=== PATIENT | male | born 1950 | race African-American/Black ===

== ENCOUNTER 2021-06-25 08:25 | Inpatient (IN) | payer MEDICARE ==
[2021-06-24 12:06] LABS: BASOPHILS % 0.2 % (0.0-1.0); EOSINOPHILS # (AUTO) 0.1 (0.0-0.4); EOSINOPHILS % 2.2 % (0.0-6.0); HEMATOCRIT 38.9 % (38.2-49.6); HEMOGLOBIN 12.5 g/dL (14.0-18.0); LYMPHOCYTES # (AUTO) 0.8 (1.0-3.2); LYMPHOCYTES % 12.6 % (18.0-39.1); MEAN CORPUSCULAR HEMOGLOBIN 30.8 pg (28-32); MEAN CORPUSCULAR HGB CONC 32.1 g/dL (31-35); MEAN CORPUSCULAR VOLUME 95.8 fL (81-99); MONOCYTES # (AUTO) 0.4 (0.2-0.8); MONOCYTES % 6.5 % (4.4-11.3); NEUTROPHILS % 78.2 % (38.7-80.0); PLATELET COUNT 140 x10e3/uL (140-360); RED BLOOD COUNT 4.06 x10e6/uL (4.3-5.7); RED CELL DISTRIBUTION WIDTH 12.7 % (11.7-14.4)
[2021-06-24 12:22] LABS: ANION GAP 16.3 mmol/L (8-16); CALCIUM 9.8 mg/dL (8.4-10.2); CREATININE, SERUM 1.75 mg/dL (0.72-1.25); POTASSIUM 5.3 mmol/L (3.5-5.1)
[~2021-06-25] VITALS: Ht 182.9 cm; Wt 71.2 kg
[~2021-06-25 08:25] MED LIST: GENTAMICIN 80MG/NS 100 ML 200 ML IV ONE; LEVOTHYROXINE50 MCG PO; LISINOPRIL-HCT1 EACH PO; METFORMIN HCL500 MG PO; PIPERACILLIN/TAZOBACTAM 3.375 GM VIAL ONE; PRAVASTATIN SOD40 MG PO; SODIUM CHLORIDE 0.9% 1000ML 1,000 ML ONE; SODIUM CHLORIDE 0.9% 50ML 50 ML ONE
[2021-06-25] MEDS ORDERED: IOPAMIDOL 300MG/ML 50ML INFUS..BTL IV ONE (11:45)
[2021-06-25] MEDS ORDERED: B&O 60MG R/S 60 MG SUPP PR ONE (11:45)
[2021-06-25] MEDS ORDERED: SEVOFLURANE INHAL SOLN 250 ML PEN BTL ONE (12:43)
[2021-06-25] MEDS ORDERED: POVIDONE IODINE 0.05% 0.05 % ML PO ONE (12:43)
[2021-06-25] MEDS ORDERED: LIDOCAINE HCL 2% LOCAL INJ 5 ML SDV VIAL INJ ONE (12:43)
[2021-06-25] MEDS ORDERED: ONDANSETRON HCL INJ 2MG/ML 2ML 2 MG/ML VIAL ONE (12:43)
[2021-06-25] MEDS ORDERED: DEXAMETHASONE SOD PHOS INJ 4 MG/ML SDV ONE (12:43)
[2021-06-25] MEDS ORDERED: PROPOFOL IV EMULSION 10 MG/ML 20 ML VIAL ONE (12:43)
[2021-06-25] MEDS ORDERED: FENTANYL CITRATE/PF 100MCG/2 ML INJ ONE ×2 (13:05→14:23)
[2021-06-25] MEDS ORDERED: MIDAZOLAM HCL 2 MG/2 ML VIAL ONE (13:05)
[2021-06-25] MEDS ORDERED: DIPHENHYDRAMINE HCL 25 MG CAP PO PRN (15:15)
[2021-06-25] MEDS ORDERED: D5.45%NS/KCL 20MEQ 1,000 ML IV SCH (15:15)
[2021-06-25] MEDS ORDERED: ONDANSETRON HCL INJ 2MG/ML 2ML 2 MG/ML VIAL IV PRN (15:15)
[2021-06-25 15:45] VITALS: BP 139/74
[2021-06-25 16:29] LABS: EOSINOPHILS % 0.3 % (0.0-6.0); HEMATOCRIT 40.9 % (38.2-49.6); HEMOGLOBIN 13.3 g/dL (14.0-18.0); LYMPHOCYTES # (AUTO) 0.5 (1.0-3.2); LYMPHOCYTES % 8.2 % (18.0-39.1); MEAN CORPUSCULAR HEMOGLOBIN 30.6 pg (28-32); MEAN CORPUSCULAR HGB CONC 32.5 g/dL (31-35); MONOCYTES # (AUTO) 0.1 (0.2-0.8); NEUTROPHILS # (AUTO) 5.3 (2.1-6.9); NEUTROPHILS % 90.3 % (38.7-80.0); PLATELET COUNT 126 x10e3/uL (140-360); RED BLOOD COUNT 4.35 x10e6/uL (4.3-5.7); RED CELL DISTRIBUTION WIDTH 12.8 % (11.7-14.4)
[2021-06-25 16:46] LABS: ANION GAP 11.7 mmol/L (8-16); CALCIUM 8.2 mg/dL (8.4-10.2); CREATININE, SERUM 1.55 mg/dL (0.72-1.25); POTASSIUM 4.7 mmol/L (3.5-5.1)
[2021-06-25 17:00] VITALS: BP 139/74
[2021-06-25 18:29] VITALS: BP 139/74
[2021-06-25] MEDS: DOCUSATE SODIUM 100 MG CAP PO SCH (18:51)
[2021-06-25 20:00] VITALS: BP 121/55
[2021-06-25] MEDS: PIPERACILLIN/TAZOBACTAM 2.25 GM in SODIUM CHLORIDE 0.9% 50ML 50 ML IV SCH (21:21)
[2021-06-26] VITALS (8 sets, daily range): BP systolic 112–146; BP diastolic 54–78
[2021-06-26] MEDS ORDERED: D5.45%NS/KCL 20MEQ 1,000 ML IV SCH (03:00)
[2021-06-26] MEDS: PIPERACILLIN/TAZOBACTAM 2.25 GM in SODIUM CHLORIDE 0.9% 50ML 50 ML IV SCH ×3 (06:09→22:05)
[2021-06-26 06:38] LABS: BASOPHILS % 0.1 % (0.0-1.0); EOSINOPHILS % 0.1 % (0.0-6.0); HEMATOCRIT 35.8 % (38.2-49.6); HEMOGLOBIN 11.9 g/dL (14.0-18.0); LYMPHOCYTES # (AUTO) 0.6 (1.0-3.2); LYMPHOCYTES % 6.9 % (18.0-39.1); MEAN CORPUSCULAR HEMOGLOBIN 30.5 pg (28-32); MEAN CORPUSCULAR HGB CONC 33.2 g/dL (31-35); MEAN CORPUSCULAR VOLUME 91.8 fL (81-99); MONOCYTES # (AUTO) 0.5 (0.2-0.8); MONOCYTES % 5.5 % (4.4-11.3); NEUTROPHILS # (AUTO) 7.8 (2.1-6.9); NEUTROPHILS % 87.1 % (38.7-80.0); PLATELET COUNT 134 x10e3/uL (140-360); RED CELL DISTRIBUTION WIDTH 12.6 % (11.7-14.4)
[2021-06-26 06:55] LABS: ANION GAP 9.8 mmol/L (8-16); CREATININE, SERUM 1.66 mg/dL (0.72-1.25); POTASSIUM 4.8 mmol/L (3.5-5.1)
[2021-06-26] MEDS ORDERED: ACETAMINOPHEN 325 MG TAB PO PRN (09:00)
[2021-06-26] MEDS ORDERED: DEXTROSE 50% SYRINGE 50 ML IV PRN (09:00)
[2021-06-26] MEDS: DOCUSATE SODIUM 100 MG CAP PO SCH ×2 (09:38→15:46)
[2021-06-26] MEDS: LEVOTHYROXINE SODIUM 50 MCG TAB PO SCH (10:00)
[2021-06-26] MEDS: SODIUM BICARBONATE 8.4% 50 ML in SODIUM CHLORIDE 0.45% 1,000 ML IV SCH ×2 (11:03→20:10)
[2021-06-26] MEDS: INSULIN LISPRO 100 UNIT/1 ML 3ML VIAL SQ SCH ×3 (11:30→20:10)
[2021-06-26] MEDS: PHENAZOPYRIDINE HCL 100 MG TAB PO PRN (15:45)
[2021-06-26] MEDS: ACETAMINOPHEN/CODEINE 300MG - 30MG TAB PO PRN (15:46)
[2021-06-26] MEDS: PRAVASTATIN 20 MG TAB PO SCH (20:10)
[2021-06-27] VITALS (8 sets, daily range): BP systolic 115–155; BP diastolic 60–96
[2021-06-27] MEDS: PHENAZOPYRIDINE HCL 100 MG TAB PO PRN ×4 (03:28→21:55)
[2021-06-27] MEDS: ACETAMINOPHEN/CODEINE 300MG - 30MG TAB PO PRN ×4 (03:28→21:55)
[2021-06-27 05:54] LABS: BASOPHILS % 0.3 % (0.0-1.0); EOSINOPHILS # (AUTO) 0.2 (0.0-0.4); EOSINOPHILS % 3.1 % (0.0-6.0); HEMATOCRIT 34.5 % (38.2-49.6); HEMOGLOBIN 11.3 g/dL (14.0-18.0); LYMPHOCYTES # (AUTO) 0.9 (1.0-3.2); MEAN CORPUSCULAR HEMOGLOBIN 30.8 pg (28-32); MEAN CORPUSCULAR HGB CONC 32.8 g/dL (31-35); MONOCYTES # (AUTO) 0.5 (0.2-0.8); MONOCYTES % 7.6 % (4.4-11.3); NEUTROPHILS # (AUTO) 5.1 (2.1-6.9); NEUTROPHILS % 75.6 % (38.7-80.0); PLATELET COUNT 115 x10e3/uL (140-360); RED BLOOD COUNT 3.67 x10e6/uL (4.3-5.7); RED CELL DISTRIBUTION WIDTH 12.9 % (11.7-14.4)
[2021-06-27 06:18] LABS: ANION GAP 8.5 mmol/L (8-16); CALCIUM 7.9 mg/dL (8.4-10.2); CREATININE, SERUM 1.61 mg/dL (0.72-1.25); POTASSIUM 4.5 mmol/L (3.5-5.1)
[2021-06-27] MEDS: LEVOTHYROXINE SODIUM 50 MCG TAB PO SCH (06:39)
[2021-06-27] MEDS: PIPERACILLIN/TAZOBACTAM 2.25 GM in SODIUM CHLORIDE 0.9% 50ML 50 ML IV SCH (06:39)
[2021-06-27] MEDS: INSULIN LISPRO 100 UNIT/1 ML 3ML VIAL SQ SCH ×5 (07:30→22:13)
[2021-06-27] MEDS: CEFUROXIME AXETIL 250 MG TAB PO SCH ×2 (08:59→21:54)
[2021-06-27] MEDS: DOCUSATE SODIUM 100 MG CAP PO SCH ×2 (08:59→16:56)
[2021-06-27] MEDS: SODIUM CHLORIDE 0.9% 1000ML 1,000 ML IV SCH (18:59)
[2021-06-27] MEDS: PRAVASTATIN 20 MG TAB PO SCH (21:54)
[2021-06-28 04:00] VITALS: BP 150/75
[2021-06-28] MEDS: SODIUM CHLORIDE 0.9% 1000ML 1,000 ML IV SCH ×2 (04:12→14:36)
[2021-06-28] MEDS: LEVOTHYROXINE SODIUM 50 MCG TAB PO SCH (05:28)
[2021-06-28 06:14] LABS: BASOPHILS % 0.3 % (0.0-1.0); EOSINOPHILS # (AUTO) 0.3 (0.0-0.4); EOSINOPHILS % 3.7 % (0.0-6.0); HEMATOCRIT 38.1 % (38.2-49.6); HEMOGLOBIN 12.3 g/dL (14.0-18.0); LYMPHOCYTES # (AUTO) 0.8 (1.0-3.2); LYMPHOCYTES % 12.5 % (18.0-39.1); MEAN CORPUSCULAR HEMOGLOBIN 30.4 pg (28-32); MEAN CORPUSCULAR HGB CONC 32.3 g/dL (31-35); MEAN CORPUSCULAR VOLUME 94.1 fL (81-99); MONOCYTES # (AUTO) 0.5 (0.2-0.8); MONOCYTES % 7.6 % (4.4-11.3); NEUTROPHILS # (AUTO) 5.1 (2.1-6.9); NEUTROPHILS % 75.5 % (38.7-80.0); PLATELET COUNT 106 x10e3/uL (140-360); RED BLOOD COUNT 4.05 x10e6/uL (4.3-5.7); RED CELL DISTRIBUTION WIDTH 12.7 % (11.7-14.4)
[2021-06-28 06:38] LABS: ANION GAP 9.9 mmol/L (8-16); CALCIUM 8.3 mg/dL (8.4-10.2); CREATININE, SERUM 1.33 mg/dL (0.72-1.25); POTASSIUM 4.9 mmol/L (3.5-5.1)
[2021-06-28] MEDS: INSULIN LISPRO 100 UNIT/1 ML 3ML VIAL SQ SCH ×4 (07:30→21:00)
[2021-06-28 08:13] VITALS: BP 135/67
[2021-06-28] MEDS: DOCUSATE SODIUM 100 MG CAP PO SCH ×2 (09:21→17:10)
[2021-06-28] MEDS: PHENAZOPYRIDINE HCL 100 MG TAB PO PRN ×2 (09:21→17:17)
[2021-06-28] MEDS: ACETAMINOPHEN/CODEINE 300MG - 30MG TAB PO PRN ×2 (09:21→17:16)
[2021-06-28] MEDS: CEFUROXIME AXETIL 250 MG TAB PO SCH ×2 (09:21→21:55)
[2021-06-28 09:26] VITALS: BP 135/67
[2021-06-28 11:55] VITALS: BP 160/61
[2021-06-28 15:42] VITALS: BP 152/85
[2021-06-28 20:00] VITALS: BP 154/69
[2021-06-28] MEDS: PRAVASTATIN 20 MG TAB PO SCH (21:55)
[2021-06-29] VITALS (7 sets, daily range): BP systolic 129–167; BP diastolic 66–71
[2021-06-29] MEDS: SODIUM CHLORIDE 0.9% 1000ML 1,000 ML IV SCH ×3 (00:30→21:46)
[2021-06-29 05:55] LABS: BASOPHILS % 0.2 % (0.0-1.0); EOSINOPHILS # (AUTO) 0.3 (0.0-0.4); EOSINOPHILS % 4.6 % (0.0-6.0); HEMATOCRIT 33.2 % (38.2-49.6); HEMOGLOBIN 11.1 g/dL (14.0-18.0); LYMPHOCYTES # (AUTO) 0.5 (1.0-3.2); LYMPHOCYTES % 8.9 % (18.0-39.1); MEAN CORPUSCULAR HEMOGLOBIN 30.7 pg (28-32); MEAN CORPUSCULAR HGB CONC 33.4 g/dL (31-35); MONOCYTES # (AUTO) 0.4 (0.2-0.8); NEUTROPHILS # (AUTO) 4.6 (2.1-6.9); NEUTROPHILS % 79.1 % (38.7-80.0); PLATELET COUNT 102 x10e3/uL (140-360); RED BLOOD COUNT 3.61 x10e6/uL (4.3-5.7); RED CELL DISTRIBUTION WIDTH 12.5 % (11.7-14.4)
[2021-06-29] MEDS: LEVOTHYROXINE SODIUM 50 MCG TAB PO SCH (05:56)
[2021-06-29 06:20] LABS: ANION GAP 9.4 mmol/L (8-16); CREATININE, SERUM 1.19 mg/dL (0.72-1.25); POTASSIUM 4.4 mmol/L (3.5-5.1)
[2021-06-29] MEDS: INSULIN LISPRO 100 UNIT/1 ML 3ML VIAL SQ SCH ×4 (07:30→22:12)
[2021-06-29] MEDS: DOCUSATE SODIUM 100 MG CAP PO SCH ×2 (08:30→16:50)
[2021-06-29] MEDS: CEFUROXIME AXETIL 250 MG TAB PO SCH ×2 (08:30→21:00)
[2021-06-29] MEDS: PHENAZOPYRIDINE HCL 100 MG TAB PO PRN (11:00)
[2021-06-29] MEDS: ACETAMINOPHEN/CODEINE 300MG - 30MG TAB PO PRN (11:00)
[2021-06-29] MEDS: B&O 60MG R/S 60 MG SUPP PR PRN ×2 (15:03→21:47)
[2021-06-29] MEDS: PRAVASTATIN 20 MG TAB PO SCH (21:00)
[2021-06-30] VITALS (9 sets, daily range): BP systolic 136–198; BP diastolic 61–77
[2021-06-30] MEDS: PHENAZOPYRIDINE HCL 100 MG TAB PO PRN ×2 (00:39→20:41)
[2021-06-30] MEDS: LEVOTHYROXINE SODIUM 50 MCG TAB PO SCH (05:05)
[2021-06-30 05:07] LABS: BASOPHILS % 0.2 % (0.0-1.0); EOSINOPHILS # (AUTO) 0.3 (0.0-0.4); HEMATOCRIT 31.4 % (38.2-49.6); HEMOGLOBIN 10.4 g/dL (14.0-18.0); LYMPHOCYTES # (AUTO) 0.5 (1.0-3.2); LYMPHOCYTES % 10.4 % (18.0-39.1); MEAN CORPUSCULAR HEMOGLOBIN 30.3 pg (28-32); MEAN CORPUSCULAR HGB CONC 33.1 g/dL (31-35); MEAN CORPUSCULAR VOLUME 91.5 fL (81-99); MONOCYTES # (AUTO) 0.4 (0.2-0.8); MONOCYTES % 7.5 % (4.4-11.3); NEUTROPHILS # (AUTO) 3.9 (2.1-6.9); NEUTROPHILS % 75.7 % (38.7-80.0); PLATELET COUNT 96 x10e3/uL (140-360); RED BLOOD COUNT 3.43 x10e6/uL (4.3-5.7); RED CELL DISTRIBUTION WIDTH 12.6 % (11.7-14.4)
[2021-06-30] MEDS: SODIUM CHLORIDE 0.9% 1000ML 1,000 ML IV SCH ×2 (05:30→13:50)
[2021-06-30 05:32] LABS: ANION GAP 10.9 mmol/L (8-16); CREATININE, SERUM 1.25 mg/dL (0.72-1.25); POTASSIUM 3.9 mmol/L (3.5-5.1)
[2021-06-30] MEDS: INSULIN LISPRO 100 UNIT/1 ML 3ML VIAL SQ SCH ×4 (07:30→20:39)
[2021-06-30] MEDS: CEFUROXIME AXETIL 250 MG TAB PO SCH ×2 (08:13→20:35)
[2021-06-30] MEDS: DOCUSATE SODIUM 100 MG CAP PO SCH ×2 (08:13→16:51)
[2021-06-30] MEDS: METOPROLOL TARTRATE 50 MG TAB PO SCH ×2 (12:31→16:51)
[2021-06-30] MEDS ORDERED: ONDANSETRON HCL 4 MG ORAL DISINTEGRATING TAB PO PRN (12:45)
[2021-06-30] MEDS: ACETAMINOPHEN/CODEINE 300MG - 30MG TAB PO PRN (13:50)
[2021-06-30] MEDS: PRAVASTATIN 20 MG TAB PO SCH (20:35)
[2021-07-01] MEDS: ACETAMINOPHEN/CODEINE 300MG - 30MG TAB PO PRN (00:50)
[2021-07-01 04:00] VITALS: BP 146/70
[2021-07-01] MEDS: SODIUM CHLORIDE 0.9% 1000ML 1,000 ML IV SCH (05:21)
[2021-07-01] MEDS: LEVOTHYROXINE SODIUM 50 MCG TAB PO SCH (06:08)
[2021-07-01] MEDS: INSULIN LISPRO 100 UNIT/1 ML 3ML VIAL SQ SCH ×2 (07:30→11:30)
[2021-07-01 08:27] VITALS: BP 131/53
[2021-07-01] MEDS: DOCUSATE SODIUM 100 MG CAP PO SCH (08:29)
[2021-07-01] MEDS: CEFUROXIME AXETIL 250 MG TAB PO SCH (08:29)
[2021-07-01] MEDS: METOPROLOL TARTRATE 50 MG TAB PO SCH (08:30)
[2021-07-01 09:15] VITALS: BP 131/53
[2021-07-01] MEDS ORDERED: LEVOFLOXACIN250 MG PO (09:39)
== END 2021-07-01 11:45 | disposition home or self-care (01) | DRG 713 ==
LOC: OR 08:25 → PACU V 15:08 → MED/SURG 15:45
PROVIDERS: ADMIT Internal Medicine; ATTEND Internal Medicine
PROC: 0T788ZZ Dilation of Bilateral Ureters, Via Natural or Artificial Opening Endoscopic (ICD-10-PCS; 2021-06-25)
PROC: BT141ZZ Fluoroscopy of Kidneys, Ureters and Bladder using Low Osmolar Contrast (ICD-10-PCS; 2021-06-25)
PROC: 0V508ZZ Destruction of Prostate, Via Natural or Artificial Opening Endoscopic (ICD-10-PCS; principal; 2021-06-25 11:42)
PROC: 0VB04ZX Excision of Prostate, Percutaneous Endoscopic Approach, Diagnostic (ICD-10-PCS; 2021-06-25 11:42)
DX: N40.1 Benign prostatic hyperplasia with lower urinary tract symptoms (principal); N39.0 Urinary tract infection, site not specified; D62 Acute posthemorrhagic anemia; R39.14 Feeling of incomplete bladder emptying; R35.1 Nocturia; R39.12 Poor urinary stream; I12.9 Hypertensive chronic kidney disease with stage 1 through stage 4 chronic kidney disease, or unspecified chronic kidney disease; N18.30 Chronic kidney disease, stage 3 unspecified; R97.20 Elevated prostate specific antigen [PSA]; N43.3 Hydrocele, unspecified; E03.9 Hypothyroidism, unspecified; E11.22 Type 2 diabetes mellitus with diabetic chronic kidney disease; N41.9 Inflammatory disease of prostate, unspecified; R33.8 Other retention of urine; R31.9 Hematuria, unspecified
CPT/HCPCS: 36415; 71046; 74420; 76872; 76998; 80048; 82948; 83735; 85025; 88305; 93005; 94799; J1100; J1580; J2001; J2250; J2405; J2543; J3010; J7030; U0002